=== PATIENT | female | born 1935 | race Caucasian/White ===

== ENCOUNTER 2017-02-08 20:43 | Inpatient (IN) | payer MEDICARE, BC ==
[~2017-02-08 20:43] MED LIST: CALCIUM 600 +1 EA23 PO; CALCIUM600 M1 PO; CIPRO500 M2 PO; IBUPROFEN200 M2 PO; KEFLEX500 M4 PO; LOSARTAN-HCTZ1 EAC4 PO; MULTIPLE VITAM1 EAC3 PO; OMEPRAZOLE20 M4 PO; SYNTHROID50 MC1 PO; TYLENOL325 M2 PO; ULTRAM50 M1 PO; VITAMIN D32000 UNI2 PO; ZOFRAN ODT4 MG PO; ZOFRAN4 M2 PO
[2017-02-08 21:32] LABS: BASO % 0.1 % (0-2); HCT-HEMATOCRIT 39.9 % (34.0-49.0); HGB-HEMOGLOBIN 13.9 gm/dl (12.0-15.5); IMMATURE GRANULOCYTES ABSOLUTE 0.03 tho/cmm (0-0.03); IMMATURE GRANULOCYTES PERCENT 0.3 % (0-0.3); LYMPH % 7.7 % (20-45); LYMPH ABSOLUTE COUNT 0.7 tho/cmm (0.8-4.5); MCH (MEAN CORPUSCULAR HGB) 30.2 pg (28.0-32.0); MCHC MEAN CORPUSCULAR HGB CONC 34.8 % (32.0-36.0); MCV (MEAN CELL VOLUME) 86.6 fl (82.0-96.0); MEAN PLATELET VOLUME 10.8 cmc (9.4-12.4); MONO % 2.1 % (0-12); MONOCYTE ABSOLUTE COUNT 0.2 tho/cmm (0.0-1.2); NEUTROPHIL ABSOLUTE COUNT 8.5 tho/cmm (1.6-8.0); NEUTROPHIL-AUTOMATED 8.5 tho/cmm (1.6-8.0); NEUTROPHILS % 89.8 % (40-80); PLATELET COUNT 252 tho/cmm (150-450); RED BLOOD COUNT 4.61 mil/cmm (4.00-5.20); RED CELL DISTRIBUTION WIDTH 12.9 % (12.4-16.4); WHITE BLOOD COUNT 9.5 tho/cmm (4.0-10.0)
[2017-02-08 21:51] LABS: ALB/GLOB RATIO 0.9 (0.8-2.0); ALKALINE PHOSPHATASE 67 U/L (33-138); ALT/SGPT 21 U/L (12-78); ANION GAP 16 mmol/L (0-20); AST/SGOT 9 U/L (10-40); BILIRUBIN,TOTAL 0.5 mg/dl (0-1.5); BLOOD UREA NITROGEN 16 mg/dl (6-24); CALCIUM 9.5 mg/dl (8.5-10.5); CARBON DIOXIDE-VENOUS 24 mmol/L (22-32); CHLORIDE 103 mmol/l (96-110); CREATININE 0.76 mg/dl (0.50-1.10); GLUCOSE 213 mg/dL (70-110); LIPASE 369 U/L (73-393); POTASSIUM 3.4 mmol/L (3.7-5.1); SODIUM 140 mmol/L (135-145); eGFR VALUE FOR BLACK 84 mL/Min
[2017-02-09 01:24] LABS: INR 1.1 INR (0.9-1.1); PROTHROMBIN TIME 12.3 SECONDS (9.0-13.6)
[2017-02-09 01:34] LABS: MAGNESIUM 1.7 mg/dl (1.8-2.6)
[2017-02-09 01:35] LABS: C-REACTIVE PROTEIN <0.3 mg/dl (0-0.9)
[2017-02-09 01:44] LABS: PROCALCITONIN <0.05 ng/ml (0.05-0.09)
[2017-02-09 01:45] LABS: URINE BILIRUBIN NEGATIVE (NEG); URINE BLOOD MODERATE (NEG); URINE GLUCOSE (UA) MODERATE (NEG); URINE KETONE MODERATE (NEG); URINE LEUKOCYTE ESTERASE POSITIVE (NEG); URINE NITRITE NEGATIVE (NEG); URINE PROTEIN MODERATE (NEG); URINE SPECIFIC GRAVITY 1.025 (1.003-1.030)
[2017-02-09 01:46] LABS: URINE APPEARANCE HAZY; URINE COLOR YELLOW
[2017-02-09 01:51] LABS: URINE AMORPHOUS 1+; URINE BACTERIA 3+; URINE EPITHELIAL CELLS 0 /[HPF] (0-10); URINE RBC 0 /[HPF] (0-5)
[2017-02-09 03:11] LABS: ALB/GLOB RATIO 0.8 (0.8-2.0); ALBUMIN 3.4 g/dl (3.5-5.0); ALKALINE PHOSPHATASE 56 U/L (33-138); ALT/SGPT 18 U/L (12-78); ANION GAP 13 mmol/L (0-20); AST/SGOT 5 U/L (10-40); BILIRUBIN,TOTAL 0.4 mg/dl (0-1.5); BLOOD UREA NITROGEN 15 mg/dl (6-24); CALCIUM 8.7 mg/dl (8.5-10.5); CARBON DIOXIDE-VENOUS 26 mmol/L (22-32); CHLORIDE 108 mmol/l (96-110); GLUCOSE 163 mg/dL (70-110); POTASSIUM 3.7 mmol/L (3.7-5.1); SODIUM 143 mmol/L (135-145); eGFR VALUE FOR BLACK 69 mL/Min
[2017-02-09 03:23] LABS: HCT-HEMATOCRIT 36.4 % (34.0-49.0); HGB-HEMOGLOBIN 12.5 gm/dl (12.0-15.5); IMMATURE GRANULOCYTES ABSOLUTE 0.01 tho/cmm (0-0.03); IMMATURE GRANULOCYTES PERCENT 0.1 % (0-0.3); LYMPH % 9.7 % (20-45); LYMPH ABSOLUTE COUNT 0.7 tho/cmm (0.8-4.5); MCH (MEAN CORPUSCULAR HGB) 30.1 pg (28.0-32.0); MCHC MEAN CORPUSCULAR HGB CONC 34.3 % (32.0-36.0); MCV (MEAN CELL VOLUME) 87.7 fl (82.0-96.0); MONO % 4.3 % (0-12); MONOCYTE ABSOLUTE COUNT 0.3 tho/cmm (0.0-1.2); NEUTROPHIL ABSOLUTE COUNT 6.2 tho/cmm (1.6-8.0); NEUTROPHIL-AUTOMATED 6.2 tho/cmm (1.6-8.0); NEUTROPHILS % 85.9 % (40-80); PLATELET COUNT 251 tho/cmm (150-450); RED BLOOD COUNT 4.15 mil/cmm (4.00-5.20); WHITE BLOOD COUNT 7.3 tho/cmm (4.0-10.0)
[2017-02-09 09:38] LABS: URINE APPEARANCE HAZY; URINE BILIRUBIN NEGATIVE (NEG); URINE BLOOD MODERATE (NEG); URINE COLOR YELLOW; URINE GLUCOSE (UA) MODERATE (NEG); URINE KETONE MODERATE (NEG); URINE LEUKOCYTE ESTERASE POSITIVE (NEG); URINE NITRITE NEGATIVE (NEG); URINE PROTEIN MODERATE (NEG)
[2017-02-10 05:23] LABS: HCT-HEMATOCRIT 33.6 % (34.0-49.0); HGB-HEMOGLOBIN 11.3 gm/dl (12.0-15.5); IMMATURE GRANULOCYTES ABSOLUTE 0.02 tho/cmm (0-0.03); IMMATURE GRANULOCYTES PERCENT 0.3 % (0-0.3); LYMPH % 12.5 % (20-45); LYMPH ABSOLUTE COUNT 0.8 tho/cmm (0.8-4.5); MCH (MEAN CORPUSCULAR HGB) 29.5 pg (28.0-32.0); MCHC MEAN CORPUSCULAR HGB CONC 33.6 % (32.0-36.0); MCV (MEAN CELL VOLUME) 87.7 fl (82.0-96.0); MEAN PLATELET VOLUME 10.9 cmc (9.4-12.4); MONO % 9.8 % (0-12); MONOCYTE ABSOLUTE COUNT 0.6 tho/cmm (0.0-1.2); NEUTROPHILS % 77.4 % (40-80); PLATELET COUNT 200 tho/cmm (150-450); RED BLOOD COUNT 3.83 mil/cmm (4.00-5.20); RED CELL DISTRIBUTION WIDTH 13.6 % (12.4-16.4); WHITE BLOOD COUNT 6.5 tho/cmm (4.0-10.0)
[2017-02-10 05:36] LABS: ALB/GLOB RATIO 0.9 (0.8-2.0); ALBUMIN 2.8 g/dl (3.5-5.0); BILIRUBIN,DIRECT 0.2 mg/dl (0.0-0.3)
[2017-02-10 05:40] LABS: BILIRUBIN,INDIRECT 0.6 mg/dL (0.0-1.0); BILIRUBIN,TOTAL 0.8 mg/dl (0-1.5)
[2017-02-10] MEDS ORDERED: HYDROCODON-ACE1 EA16 PO (14:56)
[2017-02-10] MEDS ORDERED: MIRALAX17 G2 PO (14:56)
[2017-02-10] MEDS ORDERED: ZOFRAN4 M2 PO (14:57)
== END 2017-02-10 16:10 | DRG 854 ==
LOC: EDMED 20:43 → EMR2 02-09 01:06 → 5WE 02-09 02:00 → ORW 02-09 15:03 → PACU 02-09 16:53 → 5WE 02-09 17:33
PROVIDERS: Emergency Medicine; Internal Medicine; Physician Assistant; Registered Nurse; Surgery; ADMIT Hospitalist
PROC: 0FT44ZZ Resection of Gallbladder, Percutaneous Endoscopic Approach (ICD-10-PCS; principal; 2017-02-09)
PROC: BF10YZZ Fluoroscopy of Bile Ducts using Other Contrast (ICD-10-PCS; 2017-02-09)
DX: A41.9 Sepsis, unspecified organism (principal); K80.12 Calculus of gallbladder with acute and chronic cholecystitis without obstruction; E86.0 Dehydration; R65.20 Severe sepsis without septic shock; I10 Essential (primary) hypertension; K21.9 Gastro-esophageal reflux disease without esophagitis; E03.9 Hypothyroidism, unspecified; Z85.3 Personal history of malignant neoplasm of breast; Z88.1 Allergy status to other antibiotic agents; Z88.2 Allergy status to sulfonamides; R73.9 Hyperglycemia, unspecified; K44.9 Diaphragmatic hernia without obstruction or gangrene
CPT/HCPCS: J1170; J2270; J2405; J2543; J7030; J7050; Q9966